=== PATIENT | female | born 1980 | race Caucasian/White ===

== ENCOUNTER → 2016-11-22 | Outpatient (REF) | payer OTHER | LOC: M SFHCLERA 08:40 | PROVIDERS: ATTEND Family Medicine | DX: R09.82 Postnasal drip (principal) ==

== ENCOUNTER → 2018-09-10 | Outpatient (REF) | payer OTHER | LOC: M SFHCLERA 16:58 | PROVIDERS: ATTEND Physician Assistant | DX: J02.9 Acute pharyngitis, unspecified (principal) ==

== ENCOUNTER → 2019-06-10 | Outpatient (REF) | payer OTHER | LOC: M SFHCLERA 20:40 | PROVIDERS: ATTEND Physician Assistant | DX: J02.9 Acute pharyngitis, unspecified (principal) ==